=== PATIENT | male | born 1955 | race Caucasian/White ===

== ENCOUNTER → 2017-11-01 | Day surgery (SDC) | payer BC ==
[~2017-11-01] MED LIST: CARAFATE1 GM/10 ML PO; ELIQUIST PO; FENTANYL CITRATE/PF 100MCG/2 ML INJ ONE; GABAPENTIN100 MG PO; HYOSCYAMINE SULFATE 0.5 MG/ML AMP ONE; LOSARTAN POTASS25 MG PO; MIDAZOLAM HCL 2 MG/2 ML VIAL ONE; OMEPRAZOLE40 MG PO; PROPOFOL IV EMULSION 10 MG/ML 20 ML VIAL ONE; PROPOFOL IV EMULSION 10 MG/ML 50 ML VIAL ONE; SIMVASTATIN20 MG PO; VALTREX500 MG PO; [UNRECOGNIZED DRUG - OTHER] PO
--- NOTE | 2017-11-01 10:25 | Operative Report ---
DATE OF PROCEDURE: November 01, 2017 REFERRING PHYSICIAN: Anuel Rm PROCEDURES PERFORMED: Esophagogastroduodenoscopy with esophageal dilatation and a colonoscopy. INDICATIONS FOR EGD: Heartburn, indigestion, dysphagia to solids. INDICATIONS FOR COLONOSCOPY: Colorectal cancer screening. MEDICATION: Patient was done under MAC. Please see anesthesiologist note. PROCEDURE IN DETAIL: With the patient in left lateral decubitus position, flexible fiberoptic Olympus gastroscope was introduced into the esophagus under direct visualization without any difficulty. There was some patchy erythema noted in distal esophagus. A mild stricture was noted at the GE junction that was dilated to size 52-[place]. The scope was then advanced with ease into the stomach, and mucosa overlying the antrum and the body revealed some patchy erythema and low-grade to moderate edema, and biopsies were obtained and sent to stain for H. pylori. Also, there were some hyperplastic-appearing polyps noted in the body of stomach, some were partially excised with the cold biopsy forceps. The pylorus was of normal contour and shape. It was intubated with ease and the scope was advanced all the way to the second portion of the duodenum. The scope was then withdrawn slowly. Mucosa overlying the proximal second portion and the duodenal bulb appeared to be within normal limits. The scope was then withdrawn back into the stomach and retroflexed, and the mucosa overlying the fundus and the cardia appeared to be within normal limits. The scope was then straightened out. The stomach was decompressed. The scope was subsequently withdrawn. Patient tolerated the procedure well. IMPRESSION: 1. Mild distal esophagitis. 2. Esophageal stricture at gastroesophageal junction, dilated to size 52-[place]. 3. Gastritis, biopsied. Biopsy sent to stain for Helicobacter pylori. 4. Gastric polyps, body, hyperplastic-appearing, some partially excised with the cold biopsy forceps. PLAN: Follow up histology. Continue omeprazole 40 mg 1 p.o. a.c. b.i.d. and Carafate 1 g p.o. a.c. t.i.d. and nightly. Patient was then turned around. After adequate lubrication of the anal canal, flexible fiberoptic Olympus colonoscope was inserted into the rectum with ease and advanced all the way to the cecum. The scope was then withdrawn slowly, and whatever was visualized in the mucosa overlying the cecum, ascending colon, transverse, descending, and sigmoid other than for scattered diverticular disease appeared to be within normal limits. The scope was then retroflexed into the distal rectum, and small internal hemorrhoids were noted, none of which was actively bleeding. The scope was then straightened out. It was subsequently withdrawn. Patient tolerated the procedure well. IMPRESSION: 1. Diverticulosis. 2. Internal hemorrhoids, none actively bleeding. PLAN: Initiate high-fiber low-fat diet. Initiate high-fiber supplement. Patient might benefit from a followup colonoscopy in 5 to 10 years. Job#: [id number] cc:ANUEL RM MD
== END | disposition home or self-care (01) ==
LOC: OR 07:09
PROVIDERS: ATTEND Internal Medicine Gastroenterology
DX: Z12.11 Encounter for screening for malignant neoplasm of colon (principal); K31.7 Polyp of stomach and duodenum; K29.70 Gastritis, unspecified, without bleeding; K22.2 Esophageal obstruction; K20.9 Esophagitis, unspecified; K21.9 Gastro-esophageal reflux disease without esophagitis; K57.30 Diverticulosis of large intestine without perforation or abscess without bleeding; K64.8 Other hemorrhoids; I10 Essential (primary) hypertension; E78.00 Pure hypercholesterolemia, unspecified; Z01.810 Encounter for preprocedural cardiovascular examination
CPT/HCPCS: 43239; 43450; 45378; 93005; J1980; J2250